=== PATIENT | male | born 1995 | race Caucasian/White ===

== ENCOUNTER → 2018-12-12 | Outpatient (CLI) | payer OTHER ==
[~2018-12-12] MED LIST: CARB200 PO; CEPH250SUA PO; CEPH500 PO; CLOT1TC TOP; DIPH12.5EL PO; MUPI2TO TOP; SULTRIDS PO; TEGRETOL; Tegretol PO
[2018-12-12 14:24] LABS: Source, Urine Clean Catch
[2018-12-12 18:41] LABS: Bacteria Not Seen /hpf; Red Blood Cells, Urine 0-2 /hpf (0-2); Squamous Epithelial Cells Rare /hpf (Few); White Blood Cells, Urine Not Seen /hpf (0-5)
== END | disposition home or self-care (01) ==
LOC: LAB SRC 13:57 → LAB SHORT 13:57
PROVIDERS: Nurse Practitioner Family
DX: R33.9 Retention of urine, unspecified (principal)
CPT/HCPCS: 81015

== ENCOUNTER 2018-12-22 20:32 | Emergency (ER) | payer OTHER ==
[~2018-12-22] VITALS: Ht 162.6 cm; Wt 54.0 kg
[2018-12-22] MEDS ORDERED: Lamictal100 MG PO (21:35)
[2018-12-23] MEDS ORDERED: LAMICTAL XR200 MG PO (18:48)
== END 2018-12-22 21:45 | disposition home or self-care (01) ==
LOC: ER 20:32
DX: Z76.0 Encounter for issue of repeat prescription (principal); Z79.899 Other long term (current) drug therapy; G40.909 Epilepsy, unspecified, not intractable, without status epilepticus
CPT/HCPCS: 99281

== ENCOUNTER 2018-12-23 17:50 | Emergency (ER) | payer OTHER ==
[~2018-12-23] VITALS: Ht 162.6 cm; Wt 54.0 kg
[~2018-12-23 17:50] MED LIST changes: +Lamictal100 MG PO
[2018-12-23] MEDS ORDERED: LAMICTAL XR200 MG PO (18:48)
== END 2018-12-23 19:30 | disposition home or self-care (01) ==
LOC: ER 17:50
DX: Z76.0 Encounter for issue of repeat prescription (principal); Z79.899 Other long term (current) drug therapy
CPT/HCPCS: 99281

== ENCOUNTER 2019-01-08 06:17 | Day surgery (SDC) | payer OTHER ==
[~2019-01-08] VITALS: Ht 162.6 cm; Wt 53.9 kg
[~2019-01-08 06:17] MED LIST changes: +LAMICTAL XR200 MG PO
[2019-01-08] MEDS ORDERED: LAMOTRIGINE50 MG PO (06:55)
[2019-01-08] MEDS ORDERED: D3-20002000 UNIT PO (06:57)
== END 2019-01-08 09:05 | disposition home or self-care (01) ==
LOC: ORSCSDS 06:17
PROVIDERS: Podiatrist Foot & Ankle Surgery
PROC: 0QSL0ZZ Reposition Right Tarsal, Open Approach (ICD-10-PCS; principal; 2019-01-08 07:30)
DX: S92.141A Displaced dome fracture of right talus, initial encounter for closed fracture (principal); G80.9 Cerebral palsy, unspecified; G40.909 Epilepsy, unspecified, not intractable, without status epilepticus; Z79.899 Other long term (current) drug therapy
CPT/HCPCS: J0690; J1885; J2001; J2250; J2704; J3010; J7120